=== PATIENT | female | born 2000 | race Caucasian/White ===

== ENCOUNTER → 2023-08-14 16:17 | Outpatient (CLI) | payer OTHER, SELFPAY ==
[2023-08-14 23:12] LABS: Urine N gonorrhoeae NOT DETECTED
[2023-08-14 23:32] LABS: Urine Chlamydia NOT DETECTED
== END ==
PROVIDERS: PCP Student in an Organized Health Care Education/Training Program; Visit Provider Student in an Organized Health Care Education/Training Program
DX: Z11.3 Encounter for screening for infections with a predominantly sexual mode of transmission (principal); N89.8 Other specified noninflammatory disorders of vagina
CPT/HCPCS: 87210; 87491; 87591

== ENCOUNTER → 2024-02-23 14:52 | Outpatient (CLI) | payer OTHER, SELFPAY | PROVIDERS: PCP Student in an Organized Health Care Education/Training Program; Visit Provider Physician Assistant Surgical | DX: J02.9 Acute pharyngitis, unspecified (principal) | CPT/HCPCS: 87070 ==

== ENCOUNTER → 2024-05-23 11:28 | Outpatient (CLI) | payer BC, SELFPAY ==
[2024-05-23 13:48] LABS: TSH w/ Reflex to FT4 3.03 uIU/mL (0.47-4.68)
[2024-05-23 15:16] LABS: Urine N gonorrhoeae NOT DETECTED
[2024-05-23 15:22] LABS: Urine Chlamydia NOT DETECTED
[2024-05-23 16:01] LABS: HIV 1 & 2 Ab/Ag 4th Gen Combo NEGATIVE (NEGATIVE)
[2024-05-24 06:15] LABS: RPR Screen Non Reactive (Non Reactive)
== END ==
PROVIDERS: PCP Student in an Organized Health Care Education/Training Program; Referring Provider Student in an Organized Health Care Education/Training Program; Visit Provider Student in an Organized Health Care Education/Training Program
DX: Z11.3 Encounter for screening for infections with a predominantly sexual mode of transmission (principal); T74.21XA Adult sexual abuse, confirmed, initial encounter
CPT/HCPCS: 36415; 84443; 86592; 87389; 87491; 87591